=== PATIENT | male | born 1985 | race Caucasian/White ===

== ENCOUNTER 2024-11-02 18:04 | Emergency (ER) | payer OTHER ==
--- NOTE | 2024-11-02 18:32 | ERPHSYRPT ---
- History of Present Illness Time Seen by Provider: 11/02/24 18:20 Source: patient Exam Limitations: clinical condition Patient Subjective Stated Complaint: Patient here for evaluation as he states his blood sugars have been running high in the 250s he has been dosing himself with his insulin pump he denies any other complaints at this time Timing/Duration: today Severity: mild Modifying Factors: Improves With: nothing Associated Symptoms: denies symptoms Allergies/Adverse Reactions: No Known Drug Allergies Allergy (Verified 11/02/24 18:15) - Review of Systems Eyes: No Symptoms Ears, Nose, & Throat: No Symptoms Respiratory: No Symptoms Cardiac: No Symptoms Abdominal/Gastrointestinal: No Symptoms Genitourinary Symptoms: No Symptoms Musculoskeletal: No Symptoms Skin: No Symptoms Neurological: No Symptoms Psychological: No Symptoms Endocrine: No Symptoms Hematologic/Lymphatic: No Symptoms Immunological/Allergic: No Symptoms All Other Systems: Reviewed and Negative - Physical Exam General Appearance: no apparent distress Eye Exam: PERRL/EOMI Ears, Nose, Throat Exam: normal ENT inspection Neck Exam: normal inspection Respiratory Exam: normal breath sounds Cardiovascular Exam: regular rate/rhythm Gastrointestinal/Abdomen Exam: soft, normal bowel sounds Ordered Tests: Active Orders 24 hr Category Date Time Status POCT GLUCOSE Stat Lab 11/02/24 18:13 Completed Lab/Rad Data: Laboratory Results 11/02/24 Range/Units 18:13 POC Glucometer 249 H (74 to 106) mg/dL - Progress Progress Note: Patient was informed of the need to administer a longer acting insulin here in the department he refuses. He is demanding IV fluids I have informed him that we are a national IV fluid shortage era and if he is able to maintain p.o. intake without nausea and vomiting he is to continue to do so. Patient is irate at this time and wants to leave the department. Nursing staff was present during the entire exam, and aware of the discussion. And the patient refusing any current therapies here in the department to lower his blood sugar, His vital signs are stable at the time of evaluation 11/02/24 18:29 Medical Desision Making - Discussion of managment Agreed on:: need for follow-up - Departure Departure Disposition: Home Clinical Impression: Hyperglycemia Condition: Stable Critical Care Time: No Referrals: JUNIE WILLARD NP [Primary Care Provider] - Follow up/PCP as directed
[2024-11-02 18:35] VITALS: BP 141/100; PULSE 79; RESP 18; TEMP 98.5; O2SAT 100
== END 2024-11-02 18:28 | disposition home or self-care (01) ==
LOC: ED 18:04
DX: R73.9 Hyperglycemia, unspecified (principal)
CPT/HCPCS: 82947; 99283